=== PATIENT | male | born 1955 | race Caucasian/White ===

== ENCOUNTER 2018-02-25 20:06 | Emergency (ER) | payer OTHER ==
[2018-02-25] MEDS ORDERED: Morphine VIAL* 4 MG/ML VIAL (1 ml vial) IV ONE (21:16)
[2018-02-25] MEDS ORDERED: Ondansetron INJ* 2 MG/ML VIAL IV ONE (21:17)
--- NOTE | 2018-02-25 21:18 | RAD ---
Indication: Ankle injury. 3 views of the right ankle demonstrate fracture of the medial malleolus and distal fibula with lateral subluxation of the talus. This is consistent with an eversion injury. There may also be a posterior malleolus fracture. IMPRESSION: Fracture of the distal fibula and medial malleolus as well as likely in the posterior malleolus with lateral subluxation of the talus.
[2018-02-25] MEDS ORDERED: fentaNYL* 50 MCG/ML 2 ML VIAL (100 MCG VIAL) IV SLOW PU ONE (21:44)
[2018-02-25] MEDS ORDERED: Midazolam* 1 MG/ML 10 ML VIAL (10 MG) IV ONE (21:44)
[2018-02-25] MEDS ORDERED: Naloxone* 0.4 MG/ML 1 ML VIAL ONE (22:08)
[2018-02-25] MEDS ORDERED: Flumazenil* 0.1 MG/ML 5 ML MDV ONE (22:08)
--- NOTE | 2018-02-25 22:52 | ED ---
Lower Extremity - HPI Summary HPI Summary: 62 male presents ER with complaints of right ankle pain that began today after an injury. Patient states he was on a ladder that fell out underneath him. Patient dropped down and landed on the ladder twisting his right ankle. Patient states he did not fall onto his bottom, or back. States he landed on his feet and twisted ankle on ladder. Denies head injury or loss of consciousness. Denies neck pain. Denies hip or other injury. Not on any blood thinners. Denies Any past Medical History other than a skin condition. Has not taken any medications. Is unable to bear weight due to the pain/ injury. Admits to an obvious deformity. - History of Current Complaint Chief Complaint: EDExtremityLower Stated Complaint: RT ANKLE INJURY/FALL Time Seen by Provider: 02/25/18 21:10 Hx Obtained From: Patient Mechanism Of Injury: Fall From Height Of: - 6' onto his feet, Twisted Onset of Pain: Immediate Onset/Duration: Hours - Occurred approximately one hour ago Severity Initially: Severe Severity Currently: Moderate Pain Intensity: 7 Pain Scale Used: 0-10 Numeric Timing: Constant Location: Is Discrete @ - Right ankle Character Of Pain: Sharp, Aching Associated Signs And Symptoms: Positive: Swelling. Negative: Redness, Bruising , Abdominal Pain, Knee Pain Aggravating Factor(s): Standing, Ambulation, Movement, Weight Bearing Alleviating Factor(s): Rest, Nothing Able to Bear Weight: No - Allergies/Home Medications Allergies/Adverse Reactions: Allergies Allergy/AdvReac Type Severity Reaction Status Date / Time No Known Allergies Allergy Verified 02/25/18 20:12 PMH/Surg Hx/FS Hx/Imm Hx Endocrine/Hematology History: Denies: Hx Diabetes Cardiovascular History: Denies: Hx Hypertension Respiratory History: Denies: Hx Asthma - Surgical History Surgery Procedure, Year, and Place: cholecystectomy 2000 - Immunization History Immunizations Up to Date: Yes Infectious Disease History: No Infectious Disease History: Denies: Traveled Outside the [place] in Last 30 Days - Family History Known Family History: Positive: Hypertension - Social History Alcohol Use: Occasionally Substance Use Type: Reports: None Smoking Status (MU): Never Smoked Tobacco Review of Systems Constitutional: Negative Cardiovascular: Negative Respiratory: Negative Gastrointestinal: Negative Positive: Arthralgia, Myalgia, Decreased ROM - right ankle Skin: Negative Neurological: Negative All Other Systems Reviewed And Are Negative: Yes Physical Exam Triage Information Reviewed: Yes Vital Signs On Initial Exam: Initial Vitals Temp Pulse Resp BP Pulse Ox 98.3 F 62 16 159/71 98 02/25/18 20:08 02/25/18 20:08 02/25/18 20:08 02/25/18 20:08 02/25/18 20:08 Vital Signs Reviewed: Yes Appearance: Positive: Well-Appearing, Well-Nourished, Pain Distress - Moderate Skin: Positive: Warm, Skin Color Reflects Adequate Perfusion, Dry, Other - Edema right ankle. No ecchymosis, erythema.. Negative: Cold, Numb, Cyanosis @ , Pale, Erythema @ Head/Face: Positive: Normal Head/Face Inspection, Other - No raccoon eyes or kunz signs. Negative: Temporal Artery Tenderness, Scalp Eyes: Positive: Normal, EOMI, FITZ, Conjunctiva Clear ENT: Positive: Pharynx normal Neck: Positive: Supple, Nontender Respiratory/Lung Sounds: Positive: Clear to Auscultation, Breath Sounds Present. Negative: Rales, Rhonchi, Wheezes Cardiovascular: Positive: Normal, RRR, Pulses are Symmetrical in both Upper and Lower Extremities. Negative: Murmur, Rub Abdomen Description: Positive: Nontender, Soft Bowel Sounds: Positive: Present Musculoskeletal: Positive: Limited @ - Right ankle due to pain, Interruption @ - Obvious deformity of the right ankle, Pain @ - Right ankle diffuse, Edema Right - Ankle, Other - Rest of MSK exam normal Neurological: Positive: Normal, Sensory/Motor Intact, Alert, Oriented to Person Place, Time, Reflexes Intact, NV Bundle Intact Distally, Unable to Assess Gait - Due to pain and injury Procedures - Splinting Right Lower Extremity Location: right ankle Hand-Made Type: orthoglass Splint: posterior walking Pre-Proc Neuro Vasc Exam: normal Post-Proc Neuro Vasc Exam: normal, unchanged from pre-exam Diagnostics - Vital Signs Vital Signs Temp Pulse Resp BP Pulse Ox 02/25/18 22:36 69 156/86 98 02/25/18 22:31 69 151/81 97 02/25/18 22:26 67 151/72 98 02/25/18 22:21 73 160/74 97 02/25/18 22:16 69 163/77 98 02/25/18 22:14 18 02/25/18 22:11 68 159/81 98 02/25/18 22:01 63 144/56 99 02/25/18 22:00 66 99 02/25/18 21:30 69 156/77 98 02/25/18 21:27 69 99 02/25/18 21:26 16 02/25/18 20:08 98.3 F 62 16 159/71 98 - Laboratory Lab Statement: Any lab studies that have been ordered have been reviewed, and results considered in the medical decision making process. - Radiology right ankle Xray Interpretation: Positive (See Comments) - Fracture of the distal fibula and medial malleolus as well as likely in the posterior malleolus with lateral subluxation of the talus. Radiology Interpretation Completed By: Radiologist right ankle post reduction Xray Interpretation: Positive (See Comments) - Fracture of the distal fibula and medial malleolus as well as likely in the posterior malleolus post reduction Radiology Interpretation Completed By: ED Physician Re-Evaluation - Re-Evaluation First Eval Re-Evaluation Time: 21:45 Change: Improved Lower Extremity Course/Dx - Course Course Of Treatment: X-ray obtained showing fracture fibula and tibia. Patient given pain management, morphine and Zofran prior to conscious sedation and at time of arrival .Patient required reduction. Dr. Elizondo helped in reduction and splinting, separate procedure note. Postreduction x-ray obtained showing reduction was successful. Patient was placed under conscious sedation for procedure and tolerated it well. Placed in a posterior/U-splint. Rest, ice, elevate and pain management as needed. Crutches and nonweightbearing. Follow- up with orthopedics tomorrow. Aware worsening signs and symptoms watch out for. Follow-up with primary care provider as well. All questions were answered. Other concerns. - Diagnoses Differential Diagnosis/HQI/PQRI: Positive: Dislocation, Fracture (Closed), Sprain, Strain Provider Diagnoses: Fracture of ankle, right, closed Discharge - Sign-Out/Discharge Documenting (check all that apply): Patient Departure - Discharge Plan Condition: Stable Disposition: HOME Prescriptions: HYDROcodone/ACETAMIN 5-325 MG* [[place] 5-325 TAB*] 1 tab PO Q4H PRN #12 tab MDD 4 PRN Reason: Pain Patient Education Materials: Ankle Fracture (ED) Referrals: Digiovanna,Ajcob J, MD [Primary Care Provider] - Kiran Singh MD [Medical Doctor] - Additional Instructions: Call to make an appointment with orthopedics to be seen tomorrow. Rest, elevate, ice and take ibuprofen (600mg every 6 hours with food) and pain meds as needed. Do not remove splint will get splint wet. Any new or worsening symptoms please seek medical attention. Splint feels too tight U experience any numbness or tingling or loss of blood to her fingers please return to ER as we discussed. - Billing Disposition and Condition Condition: STABLE Disposition: Home
--- NOTE | 2018-02-25 23:01 | ED ---
Progress - Progress Note Progress Note: Pt was seen by VICTOR HUGO Hoffman. Moderate sedation and reduction were completed by Dr. Elizondo. MODERATE SEDATION: Consent was obtained from the pt. He received Versed and Fentanyl. No reversal agent was used. His vital signs remained stable throughout the procedures and 15 minutes were spent. REDUCTION: Reduction of right ankle fracture/dislocation. Using traction countertraction, the right ankle was reduced. Posterior U splint applied. Neurovascular exam intact both pre and post-reduction. Post reduction XR shows good alignment. Course/Dx - Diagnoses Provider Diagnoses: Fracture of ankle, right, closed Discharge - Sign-Out/Discharge Documenting (check all that apply): Patient Departure - Discharge - Discharge Plan Condition: Stable Disposition: HOME Prescriptions: HYDROcodone/ACETAMIN 5-325 MG* [[place] 5-325 TAB*] 1 tab PO Q4H PRN #12 tab MDD 4 PRN Reason: Pain Patient Education Materials: Ankle Fracture (ED) Referrals: Jacob Dominique MD [Primary Care Provider] - Additional Instructions: Call to make an appointment with orthopedics to be seen tomorrow. Rest, elevate, ice and take ibuprofen (600mg every 6 hours with food) and pain meds as needed. Do not remove splint will get splint wet. Any new or worsening symptoms please seek medical attention. Splint feels too tight U experience any numbness or tingling or loss of blood to her fingers please return to ER as we discussed.
[2018-02-25] MEDS ORDERED: HYDROcodone/ACETAMIN 5-325 MG* 1 TAB PO ONE (23:10)
[2018-02-25 23:21] VITALS: BP 145/81
--- NOTE | 2018-02-26 07:27 | RAD ---
INDICATION: Traumatic fracture of the right ankle. COMPARISON: Comparison is made with a prior study from 2 hours earlier. TECHNIQUE: 3 views of the right ankle were obtained. FINDINGS: The patient is status post external reduction. The bones are visualized through a fiberglass splint limiting the bony detail. There is a transverse intra-articular fracture of the medial malleolus. The fracture fragments are distracted and improved in alignment from the prior study. There is a transverse slightly comminuted fracture of the distal diaphysis of the fibula the distal fragment is displaced one half shaft diameter lateral and anterior relative to the proximal fragment. There is a oblique fracture extending through the posterior lateral aspect of the tibia to the articular margin which appears distracted. There is mild lateral subluxation of the talus relative to the tibia which appears improved. IMPRESSION: MULTIPLE FRACTURES OF THE TIBIA AND FIBULA DESCRIBED STATUS POST EXTERNAL REDUCTION.
== END 2018-02-25 23:20 | disposition home or self-care (01) ==
LOC: ED 20:06
DX: S82.451A Displaced comminuted fracture of shaft of right fibula, initial encounter for closed fracture (principal); S82.51XA Displaced fracture of medial malleolus of right tibia, initial encounter for closed fracture; W11.XXXA Fall on and from ladder, initial encounter; Y92.9 Unspecified place or not applicable
CPT/HCPCS: 96374; 96375; 99282; J2250; J2270; J2310; J2405; J3010

== ENCOUNTER 2018-03-03 09:46 | Day surgery (SDC) | payer OTHER ==
[~2018-03-03 09:46] MED LIST: Buffered Lidocaine 0.9% SYRIN* 5 ML/SYR SYRINGE INTRADERM ONE; Famotidine IV* 10 MG/ML 2 ML (20 mg) IV ONE; Metoclopramide TAB* 10 MG PO ONE
[2018-03-03] MEDS ORDERED: Famotidine IV* 10 MG/ML 2 ML (20 mg) ONE (09:47)
[2018-03-03] MEDS ORDERED: ceFAZolin 2 GM PREMIX (*) 2 GM/50 ML BAG IVPB ONE (09:48)
[2018-03-03] MEDS ORDERED: Metoclopramide TAB* 10 MG ONE (09:48)
[2018-03-03] MEDS ORDERED: fentaNYL* 50 MCG/ML 2 ML VIAL (100 MCG VIAL) ONE ×2 (10:54→12:38)
[2018-03-03] MEDS ORDERED: Ketorolac INJ* 30 MG/ML 1 ML VIAL ONE (10:54)
[2018-03-03] MEDS ORDERED: Propofol* 10 MG/ML 20 ML BTL IV PUSH ONE (10:54)
[2018-03-03] MEDS ORDERED: Dexamethasone IV* 4 MG/ML 1 ML (4 MG) ONE (10:54)
[2018-03-03] MEDS ORDERED: Midazolam* 1 MG/ML 5 ML VIAL (5 MG) ONE (10:54)
[2018-03-03] MEDS ORDERED: Ondansetron INJ* 2 MG/ML VIAL ONE ×2 (10:54→16:00)
[2018-03-03] MEDS ORDERED: Lidocaine 2% PF * 5 ML VIAL ONE (10:54)
[2018-03-03] MEDS ORDERED: Lidocaine 2% PF* 10 ML AMP ONE (11:30)
[2018-03-03] MEDS ORDERED: Bupivacaine 0.5% PF 10 ML VIAL INJ ONE (11:50)
[2018-03-03] MEDS ORDERED: EPHEDrine (Pressors)* 50 MG/ML VIAL ONE (12:31)
[2018-03-03] MEDS ORDERED: Ondansetron INJ* 2 MG/ML VIAL IV PRN (13:05)
[2018-03-03] MEDS ORDERED: Naloxone* 0.4 MG/ML 1 ML VIAL IV PRN (13:05)
[2018-03-03] MEDS ORDERED: oxyCODONE/Acetamin 5/325 MG* TAB PO PRN (13:05)
[2018-03-03] MEDS ORDERED: fentaNYL* 50 MCG/ML 2 ML VIAL (100 MCG VIAL) IV PRN (13:05)
[2018-03-03] MEDS ORDERED: HYDROmorphone INJ* 0.5 MG/0.5 ML SYRINGE ONE ×2 (13:24→13:50)
[2018-03-03 17:45] VITALS: BP 150/86
--- NOTE | 2018-03-04 01:55 | OP ---
DATE OF OPERATION: 03/03/18 - [facility] DATE OF : 55. ATTENDING SURGEON: Jean Paul Sarah M.D. LINOLEUM MECHANIC: VICTOR HUGO Donato PRE-OP DIAGNOSIS: Right Henry C bimalleolar ankle fracture. POST-OP DIAGNOSIS: Right Henry C bimalleolar ankle fracture. OPERATIVE PROCEDURE: Open reduction and internal fixation, right ankle fracture. DESCRIPTION OF PROCEDURE: The patient was taken to the operating room, where a longitudinal incision was made over the fibula. We located the high fibular fracture and reduced this with a clamp and held it with a pin. We then fashioned a 10-hole, 3.5 mm recon plate at the posterolateral aspect of the fibula. This was contoured and fixed with lateral to medial cortical screws. Two syndesmotic screws were placed distally. We then imaged the joint and noted that there was a persistent shift to the mortise, so we performed an open reduction of the mortise. At this point, we noted that the patient had a large- to-low fragment, which appear to be jammed within the mortise syndesmotic area. This was directly reduced and held with a pin and then we revised the syndesmotic fixation. There was also a small 4.0 cannulated screw was placed at the [place] fragment. We then repeated the imaging of the mortise and noted that, that was now well reduced. The medial malleolus was approached by excising a small blistered area and then extending this proximally. Two 4.0 mm cannulated screws were placed in the malleolus with washers to hold it firmly. X-ray intraoperatively showed satisfactory position of the hardware in the mortise. We then irrigated both medial and lateral wounds, closing with Vicryl and tabatha and a compression dressing, placed plaster splint. [id number]/[facility] #: [id number] [facility]
--- NOTE | 2018-03-04 07:56 | RAD ---
CPT II Codes: G9500 INDICATION: Right ankle fracture TECHNIQUE: Intraoperative fluoroscopy was provided during ORIF right ankle. FINDINGS: 2 spot films depict an anatomically aligned plate and screw fixator spanning the distal fibula and 2 intramedullary screws spanning the tibial malleolus. Fluoroscopy time: 9 seconds IMPRESSION: As above.
== END 2018-03-03 17:52 | disposition home or self-care (01) ==
LOC: OR 09:46
PROVIDERS: ATTEND Orthopaedic Surgery
DX: S82.841A Displaced bimalleolar fracture of right lower leg, initial encounter for closed fracture (principal); W11.XXXA Fall on and from ladder, initial encounter; Y92.009 Unspecified place in unspecified non-institutional (private) residence as the place of occurrence of the external cause; D47.09 Other mast cell neoplasms of uncertain behavior; N40.0 Benign prostatic hyperplasia without lower urinary tract symptoms
CPT/HCPCS: 76000; A9270-GY; C1713; C1776; J0690; J1100; J1170; J1885; J2001; J2250; J2405; J2704; J3010

== ENCOUNTER 2019-05-09 14:05 | Emergency (ER) | payer BC ==
[2019-05-09 14:16] VITALS: BP 146/83
--- NOTE | 2019-05-09 14:53 | UC ---
Skin Complaint HPI - HPI Summary HPI Summary: 63-year-old male with a history of macrocytosis for the past 10 years. He presents today with right jaw pain which started approximately one week ago however in the past 2 days he has noted a lump to the right jaw near the ear and swelling to the area. He denies any fever or chills. He denies any toothache. - History of Current Complaint Chief Complaint: UCGeneralIllness Time Seen by Provider: 05/09/19 14:27 Stated Complaint: JAW PAIN Hx Obtained From: Patient Onset/Duration: Gradual Onset Skin Exposure Onset/Duration: Days Ago Timing: Constant Onset Severity: Mild Current Severity: Mild Pain Intensity: 0 Location: Other - Right jaw just below the TMJ area. Character: Swelling, Raised, Painful Aggravating Factor(s): Touch Alleviating Factor(s): Nothing Associated Signs & Symptoms: Positive: Negative - Allergy/Home Medications Allergies/Adverse Reactions: Allergies Allergy/AdvReac Type Severity Reaction Status Date / Time No Known Allergies Allergy Verified 05/09/19 14:12 PMH/Surg Hx/FS Hx/Imm Hx - Additional Past Medical History Additional PMH: Patient has a history of macrocytosis over the past 10 years. He is followed by his primary care provider and a [employer]. Previously Healthy: Yes - Surgical History Surgical History: Yes Surgery Procedure, Year, and Place: Cholecystectomy 2000 - . Right leg - Family History Known Family History: Positive: Hypertension - Social History Lives: With Family Alcohol Use: Occasionally Substance Use Type: None Smoking Status (MU): Never Smoked Tobacco - Immunization History Most Recent Tetanus Shot: 05/2014 Review of Systems All Other Systems Reviewed And Are Negative: Yes Skin: Positive: Other - He has chronic generalized macrocytosis ENT: Positive: Other - Pain and swelling with a palpable lump to the right jaw just below the TMJ area. Is Patient Immunocompromised?: No Physical Exam Triage Information Reviewed: Yes Appearance: Well-Appearing, No Pain Distress, Well-Nourished Vital Signs: Initial Vital Signs Temp 96.5 F 05/09/19 14:09 Pulse 65 05/09/19 14:09 Resp 16 05/09/19 14:09 BP 146/83 05/09/19 14:09 Pulse Ox 100 05/09/19 14:09 Vital Signs Reviewed: Yes Eyes: Positive: Conjunctiva Clear ENT: Positive: Pharynx normal, TMs normal, Uvula midline, Other - Patient has a palpable hard lump in the parotid area with tenderness on palpation. No erythema. It is mildly swollen. Tragus and movement of the ear are nontender. Neck: Positive: Supple, Nontender, No Lymphadenopathy Respiratory: Positive: Lungs clear, Normal breath sounds, No respiratory distress, No accessory muscle use Cardiovascular: Positive: RRR, No Murmur, Pulses Normal, Brisk Capillary Refill Musculoskeletal Exam: Normal Neurological Exam: Normal Psychological Exam: Normal Skin: Positive: Other - See above notes. Course/Dx - Course Course Of Treatment: Dr. Freeman spoke with the patient and rechecked the areas well. It's felt this may be a blocked parotid duct. We were going to start patient on antibiotics however he states the last antibiotic he had cause a lot of constipation and a lot of other physical ailments. At this point in time we are going to hold on the antibiotic and he can do warm moist compresses to the area 4-6 times a day for 20 minutes each time, he can take Motrin for pain or Tylenol. He was advised to get some very sour candy or omar and suck on those to possibly increase salivary drainage. He is to go to the emergency room if he has any worsening symptoms with facial swelling, feeling like his throat is closing, fever or chills. Patient is agreeable to this plan of action. He's going to follow-up with either an ear nose and throat physician on Saturday or his primary care provider. We do not have CT or ultrasound capability at this facility today. - Diagnoses Provider Diagnosis: Parotid duct obstruction Discharge ED - Sign-Out/Discharge Documenting (check all that apply): Patient Departure All imaging exams completed and their final reports reviewed: No Studies - Discharge Plan Condition: Fair Disposition: HOME Patient Education Materials: Parotid Duct Obstruction (ED) Referrals: Jacob Dominique MD [Primary Care Provider] - Hiro Ellis MD [Medical Doctor] - Additional Instructions: Warm moist compresses to the sore area 4-6 times a day for 20 minutes each time. Purchase some extremely sour candy or use omar to stimulate the salivary production. Follow-up with your primary care provider on Saturday or ear nose and throat physician on Saturday for recheck. Go to the emergency room if you have worsening symptoms, fever or chills, facial swelling, feeling of your throat closing or difficulty breathing. - Billing Disposition and Condition Condition: FAIR Disposition: Home
== END 2019-05-09 15:05 | disposition home or self-care (01) ==
LOC: UCEAST 14:05
DX: K11.8 Other diseases of salivary glands (principal)
CPT/HCPCS: 99211; G0463